=== PATIENT | female | born 1945 | race African-American/Black ===

== ENCOUNTER 2016-11-22 14:12 | Emergency (ER) | payer OTHER ==
[~2016-11-22] VITALS: Ht 160 cm; Wt 68.2 kg
[~2016-11-22 14:12] MED LIST: AMLO-147; ATOR20TA17; HYDR25TA6; OMEP40CA3 PO
[2016-11-22 14:50] VITALS: Ht 160 cm; Wt 68.2 kg
[2016-11-22] MEDS ORDERED: KETOROLAC 30 MG INJ IM STA (16:59)
--- NOTE | 2016-11-22 17:53 | RADRPT ---
PROCEDURE: XR Finger. CLINICAL INDICATION: Laceration, pain. TECHNIQUE: Three views of the right third finger. COMPARISON: None available. FINDINGS: No fracture or dislocation is identified. The joint spaces are preserved. There is no significant soft tissue swelling. No radiopaque foreign body is identified. IMPRESSION: 1. No fracture or dislocation of the right third finger. 2. No radiopaque foreign body. RPTAT: HTAR .Tin Veloz MD, MD Date Time Electronically viewed and signed by .Tin Veloz MD, on 11/22/2016 17:53 .R/
--- NOTE | 2016-11-22 17:54 | RADRPT ---
PROCEDURE: XR Finger. CLINICAL INDICATION: Laceration, pain. TECHNIQUE: Three views of the right fourth finger. COMPARISON: None available. FINDINGS: No fracture or dislocation is identified. The joint spaces are preserved. There is no significant soft tissue swelling. No radiopaque foreign body is identified. IMPRESSION: 1. No fracture or dislocation of the right fourth finger. 2. No radiopaque foreign body. RPTAT: HTAR .Tin Veloz MD, MD Date Time Electronically viewed and signed by .Tin Veloz MD, on 11/22/2016 17:54 .R/
[2016-11-22] MEDS ORDERED: IBUP-1542 PO (18:00)
[2016-11-22 18:38] VITALS: BP 110/59; PULSE 77; RESP 18; TEMP 98.8
--- NOTE | 2016-11-22 19:33 | ERD ---
ER Documentation Chief Complaint Date/Time DATE: 11/22/16 TIME: 19:17 Chief Complaint right middle finger abrasion HPI This is a 71 year old female who presents to ER with finger injury that occurred today about 2 hours prior to arrival. Patient states she slammed her right middle and ring finger in an oven door. Patient has small laceration to right middle finger. Full mobility to right hand and fingers. Denies loss of sensation. Denies numbness or tingling. No ecchymosis. ROS All systems reviewed and are negative except as per history of present illness. Medications Home Meds Active Scripts Ibuprofen* (Motrin*) 600 Mg Tab, 600 MG PO Q6, #15 TAB Prov:KALEIGH RIVERA [employer] 11/22/16 Reported Medications Omeprazole* (Prilosec*) 40 Mg Capsule.dr, 40 MG PO DAILY, CAP 05/08/14 Hydrochlorothiazide (Hydrochlorothiazide) 25 Mg Tablet 04/15/11 Atorvastatin (Lipitor) 20 Mg Tablet 04/15/11 Amlodipine Besylate* (Amlodipine Besylate*) 10 Mg Tablet 04/15/11 Allergies Allergies: Coded Allergies: No Known Allergies (Verified Allergy, Mild, 03/02/14) PMhx/Soc History of Surgery: Yes (appendex, gallbladder, liver surg. ) Anesthesia Reaction: No Hx Neurological Disorder: No Hx Respiratory Disorders: No Hx Cardiac Disorders: Yes Hx Psychiatric Problems: No Hx Miscellaneous Medical Probl: No Hx Alcohol Use: Yes Hx Substance Use: No Hx Tobacco Use: No Smoking Status: Never smoker Physical Exam Vitals Vital Signs Date Time Temp Pulse Resp B/P Pulse Ox O2 Delivery O2 Flow Rate FiO2 11/22/16 18:38 98.8 77 18 110/59 99 Room Air 11/22/16 14:50 98.8 86 19 107/59 99 Physical Exam Const: NAD, alert Head: Atraumatic Eyes: Normal Conjunctiva ENT: Normal External Ears, Nose and Mouth. Neck: Full range of motion..~ No meningismus. Resp: Clear to auscultation bilaterally Cardio: Regular rate and rhythm, no murmurs Abd: Soft, non tender, non distended. Normal bowel sounds Skin: small superficial laceration to right middle finger, 3rd digit . edges are approximated. no active bleeding. No erythema or drainage. Back: No midline or flank tenderness Ext: No cyanosis, or edema Neur: Awake and alert Psych: Normal Mood and Affect Results 24 hrs Current Medications Medications (Trade) Dose Ordered Sig/Collins Route PRN Reason Start Time Stop Time Status Last Admin Dose Admin Ketorolac Tromethamine (Toradol) 30 mg ONCE STAT IM 11/22/16 16:59 11/22/16 17:01 DC 11/22/16 17:06 Procedures/MDM ED course Imaging Patient: SCOTT PRATT : 1945 Age: 71 Sex: F MR #: [id number] DOS: 11/22/161658 Ordering MD: KALEIGH RIVERA NP Location: [facility] Room/Bed: PROCEDURE: XR Finger. CLINICAL INDICATION: Laceration, pain. TECHNIQUE: Three views of the right third finger. COMPARISON: None available. FINDINGS: No fracture or dislocation is identified. The joint spaces are preserved. There is no significant soft tissue swelling. No radiopaque foreign body is identified. IMPRESSION: 1. No fracture or dislocation of the right third finger. 2. No radiopaque foreign body. Patient: SCOTT PRATT : 1945 Age: 71 Sex: F MR #: [id number] DOS: 11/22/161658 Ordering MD: KALEIGH RIVERA NP Location: [facility] Room/Bed: PROCEDURE: XR Finger. CLINICAL INDICATION: Laceration, pain. TECHNIQUE: Three views of the right fourth finger. COMPARISON: None available. FINDINGS: No fracture or dislocation is identified. The joint spaces are preserved. There is no significant soft tissue swelling. No radiopaque foreign body is identified. IMPRESSION: 1. No fracture or dislocation of the right fourth finger. 2. No radiopaque foreign body. MDM: 71 year old female presents to ER after finger injury earlier today. Imaging of X-ray right fourth finger reviewed by radiologist as no fracture or dislocation of the right fourth finger. No radiopaque foreign body. X-ray right 3rd finger reviewed by radiologist as no fracture or dislocation of the right third finger. No radiopaque foreign body. Verbal consent obtained and after copious amounts of irrigation with normal saline, Dermabond applied with edges approximated. Patient remains neurovascularly intact per and post procedure. A fingerboard splint was used to keep right 3rd and 4th finger straight to aid in healing since laceration is on near proximal interphalangeal joint. Patient is appropriate for outpatient management and encouraged to return to ER in 2 days for wound check. Return to ER sooner for any new or worsening symptoms. Patient will be discharged with prescription for ibuprofen. Patient verbalizes understanding. All questions answered at discharge. Departure Diagnosis: Primary Impression: Finger injury Encounter type: initial encounter Laterality: left Qualified Code: S69.92XA - Finger injury, left, initial encounter Condition: Stable Patient Instructions: Crush Injury, Hand/Finger Referrals: JOHANNE HAN (PCP) Additional Instructions: Return in 2 days for wound recheck. Return to ED for any high fever, chest pain, difficulty breathing, shortness breath, wheezing, vomiting, diarrhea, abdominal pain or any new or worsening symptoms. KALEIGH RIVERA NP Nov 22, 2016 19:32
== END 2016-11-22 18:30 | disposition home or self-care (01) ==
LOC: FTE 14:12
DX: S61.212A Laceration without foreign body of right middle finger without damage to nail, initial encounter (principal); W23.1XXA Caught, crushed, jammed, or pinched between stationary objects, initial encounter; Y92.9 Unspecified place or not applicable
CPT/HCPCS: 12001; 73140; 96372; 99284; J1885